=== PATIENT | female | born 1985 | race Caucasian/White ===

== ENCOUNTER 2017-06-14 07:26 | Emergency (ER) | payer SELFPAY ==
[~2017-06-14] VITALS: Ht 160 cm; Wt 81.6 kg
[2017-06-14] MEDS ORDERED: ACETAMINOPHEN 325 MG TABLET ONE (08:16)
[2017-06-14] MEDS ORDERED: ONDANSETRON ODT 4 MG ONE (08:16)
[2017-06-14] MEDS ORDERED: ONDANSETRON ODT 4 MG PO ONE (08:30)
[2017-06-14] MEDS ORDERED: ACETAMINOPHEN 325 MG TABLET PO ONE (08:30)
[2017-06-14 08:55] LABS: BLOOD UREA NITROGEN 13 mg/dL (7-18)
[2017-06-14 10:26] VITALS: BP 113/60
== END 2017-06-14 10:30 | disposition home or self-care (01) ==
LOC: ED 10:15
DX: O26.891 Other specified pregnancy related conditions, first trimester (principal); R10.32 Left lower quadrant pain; Z3A.01 Less than 8 weeks gestation of pregnancy
CPT/HCPCS: 36415; 76801; 80048; 81001; 82040; 84702; 85025; 87086; 99285; Q0162

== ENCOUNTER 2017-06-16 07:17 | Emergency (ER) | payer SELFPAY ==
[~2017-06-16] VITALS: Ht 160 cm; Wt 82.3 kg
[2017-06-16 08:31] VITALS: BP 105/68
== END 2017-06-16 08:34 | disposition home or self-care (01) ==
LOC: ED 08:15
DX: Z32.01 Encounter for pregnancy test, result positive (principal); Z88.1 Allergy status to other antibiotic agents
CPT/HCPCS: 36415; 84702; 99283

== ENCOUNTER 2017-06-24 17:51 | Emergency (ER) | payer SELFPAY ==
[~2017-06-24] VITALS: Ht 160 cm; Wt 81.6 kg
[2017-06-24 17:55] VITALS: BP 120/78
[2017-06-24 18:47] LABS: BLOOD UREA NITROGEN 14 mg/dL (7-18)
== END 2017-06-24 19:53 | disposition home or self-care (01) ==
LOC: ED 19:28
DX: O20.0 Threatened abortion (principal)
CPT/HCPCS: 36415; 76801; 80048; 81003; 82040; 84702; 85025; 86901; 99285

== ENCOUNTER 2017-09-06 14:59 | Emergency (ER) | payer MEDICAID, OTHER ==
[~2017-09-06] VITALS: Ht 160 cm; Wt 80.4 kg
[2017-09-06 15:01] VITALS: BP 116/74
[2017-09-06] MEDS ORDERED: ONDANSETRON ODT 4 MG PO ONE (15:30)
[2017-09-06 16:17] LABS: HEMATOCRIT 36.9 % (34.6-47.8); HEMOGLOBIN 12.5 g/dL (11.7-16.4)
[2017-09-06 16:28] LABS: BLOOD UREA NITROGEN 9 mg/dL (7-18)
[2017-09-06 16:33] LABS: ASPARTATE AMINO TRANSFERASE 11 U/L (15-37); BLOOD UREA NITROGEN 9 mg/dL (7-18)
[2017-09-06] MEDS ORDERED: ONDANSETRON ODT 4 MG ONE (16:37)
== END 2017-09-06 17:50 | disposition home or self-care (01) ==
LOC: ED 16:05
DX: O26.892 Other specified pregnancy related conditions, second trimester (principal); Z3A.16 16 weeks gestation of pregnancy; S39.011A Strain of muscle, fascia and tendon of abdomen, initial encounter; X58.XXXA Exposure to other specified factors, initial encounter; Y93.89 Activity, other specified; Y92.89 Other specified places as the place of occurrence of the external cause; Y99.9 Unspecified external cause status
CPT/HCPCS: 36415; 76805; 80048; 80053; 81003; 82040; 83690; 84702; 85025; 99285; Q0162